=== PATIENT | male | born 1945 | race Caucasian/White ===

== ENCOUNTER → 2023-04-05 16:23 | Outpatient (BNVA) | payer MEDICARE, SELFPAY | PROVIDERS: Family Provider Family Medicine; PCP Family Medicine; Visit Provider Nurse Practitioner Family | DX: M25.562 Pain in left knee (principal) | CPT/HCPCS: 73562 ==

== ENCOUNTER → 2024-05-24 09:30 | Outpatient (BNVA) | payer MEDICARE, SELFPAY | PROVIDERS: Family Provider Family Medicine; PCP Family Medicine; Visit Provider Family Medicine | DX: E86.0 Dehydration (principal); N17.9 Acute kidney failure, unspecified | CPT/HCPCS: 80048; 85027 ==